=== PATIENT | male | born 1940 | race African-American/Black ===

== ENCOUNTER → 2016-05-27 | Outpatient (CLI) | payer MEDICARE, OTHER ==
--- NOTE | ~2016-05-27 | CR58 ---
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 [place], [place] [address] [id number] O MR#: [id number] Acc #: [id number] NAME: CRYSTAL SHEARER : 1940 SEX: M STUDY DATE/TIME: 05/27/2016 11:24 UNIT: [facility] ROOM: STUDY DESCRIPTION: CR Cervical Spine 2 or 3 Views Attending Physician: Amber Sloan A.P.R.N. Ordering Physician: Amber Sloan A.P.R.N. MEDICAL IMAGING REPORT This report is preliminary unless electronic signature is present EXAM 4 views cervical spine HISTORY Pain in the neck post surgery 1 month ago. FINDINGS This patient is status post cervical spinal fusion at C4 through C6. I am not convinced I can see any definite evidence of hardware loosening or failure. I do question if there is some soft tissue fullness within the prevertebral soft tissues. It does appear more pronounced than on the preoperative MRI. I am uncertain if this is postoperative in nature. Odontoid is not well seen. I do not see a definite acute fracture. There is some retrolisthesis of C3 on C4 which I do not think is really significantly changed when compared to the prior study. IMPRESSION Since prior MRI, patient has undergone anterior cervical spinal fusion extending from C4 through C6. Hardware appears to project in expected position. I do question if there is soft tissue fullness within the prevertebral soft tissues. Potentially, some of this is postoperative in nature but certainly, CT or MRI would allow for better characterization. Odontoid is also not well seen on these images and if there is any concern for pathology at this level, it would certainly be better seen with either CT or MRI. Dictated by... Nicole Walsh M.D. THIS IS AN ELECTRONICALLY VERIFIED REPORT STS. 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 at 05/28/2016 7:44 AM AFF/pcl TD: 05/27/2016 22:19 JOB #: [id number] MEDICAL IMAGING REPORT COPY
== END | disposition home or self-care (01) ==
LOC: CRAD 11:09
DX: G95.20 Unspecified cord compression (principal); Z98.1 Arthrodesis status
CPT/HCPCS: 72040

== ENCOUNTER → 2016-10-04 | Outpatient (CLI) | payer MEDICARE, OTHER ==
--- NOTE | ~2016-10-04 | US10 ---
[id number] [facility] [address] [place], [place] [address] [id number] O MR#: [id number] Acc #: [id number] NAME: CRYSTAL SHEARER : 1940 SEX: M STUDY DATE/TIME: 10/04/2016 9:39 UNIT: [facility] ROOM: STUDY DESCRIPTION: US Aorta Complete Attending Physician: Nallely Mathis M.D. Referring Physician: Nallely Mathis M.D. Ordering Physician: Nallely Mathis M.D. Primary Care Physician: Nallely Mathis M.D. MEDICAL IMAGING REPORT This report is preliminary unless electronic signature is present EXAM Aortic ultrasound INDICATIONS Aortic aneurysm screening examination. Patient has a history of hypertension and hyperlipidemia. TECHNIQUE De La Torre-scale color Doppler and spectral Doppler waveform analysis was performed through the patient's aorta. FINDINGS Patient's abdominal aorta measures within normal size limits as do the common iliac arteries. I suspect there is probably some atherosclerotic involvement particularly within the mid distal aorta. IMPRESSION No evidence of abdominal aortic aneurysm Dictated by... Nicole Walsh M.D. THIS IS AN ELECTRONICALLY VERIFIED REPORT Nicole Walsh M.D. at 10/05/2016 4:46 AM AFF/rnr TD: 10/05/2016 01:50 JOB #: [id number] MEDICAL IMAGING REPORT Page 1 of 1 COPY
== END | disposition home or self-care (01) ==
LOC: CGUS 09:08
DX: Z13.6 Encounter for screening for cardiovascular disorders (principal); I10 Essential (primary) hypertension; E78.5 Hyperlipidemia, unspecified
CPT/HCPCS: 76770